=== PATIENT | male | born 1995 | race Caucasian/White ===

== ENCOUNTER 2021-01-08 01:58 | Emergency (ER) | payer SELFPAY ==
[~2021-01-08 01:58] MED LIST: DULERA 200 MCG8.8 GM INH; MEDROL 4MG DOSEP4 MG PO; MUCINEX 600MG600 MG PO; SINGULAIR10 MG PO; VENTOLIN HFA IN18 GM INH; XOPENEX HFA15 GM INH; ZANTAC150 MG PO; ZITHROMAX TRI-500 MG PO
[2021-01-08 03:36] LABS: MARIJUANA (THC) NEGATIVE (NEGATIVE)
[2021-01-08 03:37] LABS: AMPHETAMINES NEGATIVE (NEGATIVE); BARBITURATES NEGATIVE (NEGATIVE); ECSTASY (MDMA) NEGATIVE (NEGATIVE); METHADONE NEGATIVE (NEGATIVE); OPIATES NEGATIVE (NEGATIVE); OXYCODONE NEGATIVE (NEGATIVE)
[2021-01-08 04:27] LABS: BASOPHIL 0.4 % (0-2); EOSINOPHIL 3.1 % (0-5); HCT 52.3 % (42.0-52.0); HGB 17.4 g/dl (13.2-18.0); LYMPHOCYTE 35.6 % (15-48); MCH 30.7 pg (25.0-31.0); MCHC 33.3 g/dL (32.0-36.0); MCV 92.4 fL (78.0-100.0); MONOCYTE 3.8 % (0-12); MPV 10.1 fL (6.0-9.5); NEUTROPHIL 56.6 % (41-80); NRBC 0; PLT 271 K/uL (150-400); RBC 5.66 M/uL (4.70-6.00); RDW 12.3 % (11.5-14.0); WBC 15.4 K/uL (4.0-10.5)
[2021-01-08 04:56] LABS: BILIRUBIN - TOTAL 0.5 mg/dL (0.2-1.0); BUN/CREAT RATIO (CALC) 12.5 RATIO; CREATININE 0.88 mg/dL (0.67-1.17); GLOBULIN (CALCULATION) 4.3 g/dL; POTASSIUM 3.7 mmol/L (3.5-5.1); TOTAL PROTEIN 8.3 g/dL (6.4-8.2)
== END 2021-01-08 07:03 | disposition home or self-care (01) ==
LOC: FER 01:58
PROVIDERS: Emergency Medicine Emergency Medical Services
DX: R41.82 Altered mental status, unspecified (principal); F10.129 Alcohol abuse with intoxication, unspecified; J45.909 Unspecified asthma, uncomplicated; F17.210 Nicotine dependence, cigarettes, uncomplicated; Z88.1 Allergy status to other antibiotic agents
CPT/HCPCS: 36415; 80053; 80305; 85025; G0480

== ENCOUNTER 2021-09-12 02:50 | Emergency (ER) | payer OTHER | END 2021-09-12 03:28 | LOC: FER 02:50 | DX: Z02.89 Encounter for other administrative examinations (principal); Z28.310 Unvaccinated for COVID-19 | CPT/HCPCS: 99283 ==